=== PATIENT | female | born 1960 | race Caucasian/White ===

== ENCOUNTER 2019-05-11 06:40 | Day surgery (SDC) | payer OTHER ==
[2019-05-11] MEDS ORDERED: Propofol 200 MG/20 ML SDV IV ONE (06:41)
[2019-05-11] MEDS ORDERED: fentaNYL 100 MCG/2 ML SDV IV ONE (06:41)
[2019-05-11] MEDS ORDERED: Ondansetron 4 MG/2 ML SDV IVPUSH ONE (06:41)
[2019-05-11] MEDS ORDERED: Lidocaine 2% 5 ML SDV INJECT ONE (06:41)
[2019-05-11] MEDS ORDERED: Dexamethasone 4 MG/ML 5 ML MDV IVPUSH ONE (06:41)
[2019-05-11] MEDS ORDERED: Ketorolac 30 MG/ML SDV IVPUSH ONE (06:41)
[2019-05-11] MEDS ORDERED: Ropivacaine 0.5% 5 MG/ML 20 ML SDV INJECT ONE (06:41)
[2019-05-11] MEDS ORDERED: Midazolam 1 MG/ML 2 ML SDV IV ONE (06:41)
[2019-05-11] MEDS ORDERED: Lactated Ringers 1,000 ML IV ONE (06:41)
[2019-05-11] MEDS ORDERED: Scopolamine 1.5 MG Transdermal Patch TRDERM ONE (07:00)
[2019-05-11] MEDS ORDERED: Acetaminophen 500 MG Tab PO ONE (07:00)
[2019-05-11] MEDS ORDERED: Clindamycin in 0.9 % Sod Chlor 900 MG/50 ML BAG IV ONE (07:30)
[2019-05-11] MEDS: Lactated Ringers 1,000 ML IV SCH ×2 (07:40→10:28)
[2019-05-11] MEDS ORDERED: Tranexamic Acid 3,000 MG, Sodium Chloride 0.9% 100 ML IRR ONE ×2 (09:00)
[2019-05-11] MEDS ORDERED: Ropivacaine 49.25 ML, Ketorolac 30 MG, EPINEPHrine 0.5 MG, cloNIDine 80 MCG, Sodium Chl... INJECT ONE ×5 (09:00)
--- NOTE | 2019-05-11 09:28 | PCM.OPNOTE ---
- General Post-Op/Procedure Note Date of Surgery/Procedure: 05/11/19 Operative Procedure(s): left medial pka Pre Op Diagnosis: left knee primary oa Post-Op Diagnosis: Same Anesthesia Technique: Combo Spinal/Epidural, MAC Primary Surgeon: Adiel Montejo Anesthesia Provider: Fernando Tracey Cash Register Repairer: Coreen Pulido EBL in mLs: 100 Complications: None Condition: Good
[2019-05-11] MEDS ORDERED: DOXYCYCLINE 100 MG PO PRN (09:34)
[2019-05-11] MEDS ORDERED: ALPRAZolam 0.5 MG Tab PO PRN (09:34)
[2019-05-11] MEDS ORDERED: Morphine 2 MG/ML Syringe IVPUSH PRN (09:36)
[2019-05-11] MEDS ORDERED: Magnesium Hydroxide 400 MG/5 ML Susp 30 ML Cup PO PRN (09:36)
[2019-05-11] MEDS ORDERED: Docusate Sodium 100 MG Cap PO PRN (09:36)
[2019-05-11] MEDS ORDERED: diphenhydrAMINE 50 MG/ML SDV IVPUSH PRN (09:36)
[2019-05-11] MEDS ORDERED: Sennosides 8.6 MG Tab PO PRN (09:36)
[2019-05-11] MEDS ORDERED: Ondansetron 4 MG/2 ML SDV IVPUSH PRN (09:36)
[2019-05-11] MEDS ORDERED: Zolpidem 5 MG Tab PO PRN (09:36)
[2019-05-11] MEDS ORDERED: Bisacodyl 5 MG Tab PO PRN (09:36)
[2019-05-11] MEDS ORDERED: Naloxone 0.4 MG/ML SDV IVPUSH PRN (09:36)
[2019-05-11] MEDS: traMADol 50 MG Tab PO SCH ×3 (12:35→23:41)
--- NOTE | 2019-05-11 13:35 | US ---
INDICATION: Left femoral nerve ablation. ULTRASOUND, RFA GUIDANCE: Multiple ultrasonic images were utilized, along with real time imaging, for guidance for left femoral nerve blocking. MTDD
--- NOTE | 2019-05-11 13:36 | CR ---
INDICATION: Postop. LEFT KNEE: Frontal and lateral views of the left knee were obtained portable, post medial hemiarthroplasty of the left knee, 05/11/19 - no comparisons. The patient is post total knee arthroplasty with air in the joint and metallic skin sutures noted in place. Good position and alignment of the medial hemiarthroplasty is seen with no evidence of a complicating process. IMPRESSION: Satisfactory appearance postop left medial hemiarthroplasty. BHARGAVI
[2019-05-11] MEDS: Acetaminophen/oxyCODONE 325-5 MG Tab PO PRN (14:11)
--- NOTE | 2019-05-11 15:21 | OR ---
DATE OF OPERATION: 05/11/2019 SURGEON: Adiel Montejo DO PREOPERATIVE DIAGNOSIS: Left knee primary osteoarthritis. POSTOPERATIVE DIAGNOSIS: Left knee primary osteoarthritis. PROCEDURE: Left knee medial partial knee arthroplasty. CAREER LAW CLERK: Coreen Pulido NP. Nurse practitioner, Coreen Pulido NP, played an essential role in assisting in this case, helping to position the patient, retract structures as needed, as well as suturing and cutting sutures as indicated. Her presence improved patient's safety and decreased operative time. ANESTHESIA: Spinal plus conscious sedation, Fernando Tracey CRNA. FLUID: Lactated Ringer solution. ESTIMATED BLOOD LOSS: 100 mL. COMPLICATIONS: None. SPECIMEN: None. DISCHARGE DISPOSITION: Stable to PACU. INSTRUMENTATION: DePuy Sigma size 2 femur, size 2 tibia, and size two 8 mm polyethylene tibial insert. HISTORY AND INDICATION FOR PROCEDURE: The patient is well known to me. She had been seen at [facility]. She had failed nonoperative treatment. Preoperative imaging including plain films and MRI confirmed the above-mentioned diagnosis. Risks and benefits of the procedure explained to the patient. Informed consent was obtained. DETAILS OF PROCEDURE: The patient was seen preoperatively by myself and Anesthesia staff in the preoperative holding area where the operative site was marked. She was brought to the operative suite by Anesthesia staff where spinal was performed plus conscious sedation. A well-padded tourniquet was placed on the left thigh. A Yu catheter was placed. The right lower extremity was placed into a stirrup. The left lower extremity was placed into a hip encinas with a gel pad. The left lower extremity was then prepped and draped in a sterile manner. Time-out was called identifying the correct patient, correct procedure, correct site, and that antibiotics were begun within appropriate period of time. The left lower extremity was exsanguinated. Tourniquet was raised to 250 mmHg for 35 minutes and taken down during cementing. An incision was made from the tibial tubercle along the medial side of the patella to the superior pole. Bleeding was controlled with Bovie electrocautery. Gelpi's were used for retraction. A medial parapatellar arthrotomy was then made. The medial proximal tibia was visualized using Bovie electrocautery. The anterior portion of the medial meniscus was removed. The infrapatellar fat pad was removed. The lateral joint space was inspected and found to be good. No cyst was visualized on the ACL as was on the MRI. The tibial guide was then placed in line with the patella and the second metatarsal. A guide was used to remove the proximal 3 mm of the tibia. This was pinned in place. I made my vertical line just lateral to the lateral tibial spine in line with the anterior superior iliac spine and then my horizontal cut was made. I then removed my guide and then removed the proximal tibial portion which measured between a size 2 and a size 3. We settled on a size 2. We then brought the knee into extension and placed the distal femoral cutting guide, pinned it in place, and then used the saw to make our distal femoral cut. We then removed the guide. I then marked the midportion of the condyle anteriorly and posteriorly with Bovie electrocautery using the size 2 joystick. I then applied my femoral guide, pinned this in place, and made my chamfer cuts as well as drilled my lugs. I then removed extra pieces of bone and then applied my femur which fit very well and easily measured and was able to slide a 7 into it anticipating the size 8 tibia polyethylene insert. I then removed all of that component, and then I was able to remove the posterior portion of the medial meniscus. I then inserted my tibial baseplate keel cutter. I used a lamina marketing associate to hold this in place and then cut my keel using the gouge and then drilled the lug through the tibial baseplate guide. I then removed all my components, applied TXA and let it set in the wound. We then mixed our cement. We then cemented our components in place leaving a size two [address] in approximately 20 degrees of flexion and let the cement set up. We took the tourniquet down at 35 minutes. I was able to Bovie a couple bleeders. After drying, I took a great deal of time to make sure that all of our cement was out and cleaned our baseplate and femur from any extra dried cement. I then trialed with a size 8 mm and then inserted an 8 mm polyethylene insert. I then copiously irrigated with saline and then irrigated with Betadine infused irrigation. We ranged the knee when it was stable throughout range of motion. We then closed the parapatellar arthrotomy with 2 [id number] #5 Ethibond sutures at the superior and inferior pole of patella, followed by #1 Stratafix in a watertight manner through the arthrotomy and then closed subcutaneously with #1 Stratafix followed by skin heather followed by Betadine-soaked Adaptic, sponges, ABD, and Medipore tape. The patient was allowed to awaken from general anesthesia and taken to the PACU in stable condition. /[id number] BS/MODL
[2019-05-11] MEDS: Clindamycin in 0.9 % Sod Chlor 600 MG/50 ML BAG IV SCH ×2 (16:00→23:44)
[2019-05-11] MEDS: Ketorolac 30 MG/ML SDV IVPUSH SCH (17:25)
[2019-05-11] MEDS: Sodium Chloride 0.9% 10 ML Syringe FLUSH PRN (17:30)
[2019-05-12] MEDS: Ketorolac 30 MG/ML SDV IVPUSH SCH (00:33)
[2019-05-12] MEDS: Sodium Chloride 0.9% 10 ML Syringe FLUSH PRN (00:34)
[2019-05-12] MEDS: Levothyroxine 100 MCG Tab *PTOM PO SCH ×2 (05:55→06:30)
[2019-05-12] MEDS: Acetaminophen/oxyCODONE 325-5 MG Tab PO PRN ×2 (06:06→13:15)
[2019-05-12] MEDS: traMADol 50 MG Tab PO SCH ×2 (07:01→12:10)
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
--- NOTE | 2019-05-12 08:43 | ANES ---
DATE OF PROCEDURE: 05/11/2019 SURGEON: Dr. Adiel Montejo. PROCEDURE DONE: Left adductor canal nerve block with ultrasound guidance in the PACU. TIME OF PROCEDURE: 1006 hours, ending at 1017 hours. PREOPERATIVE DIAGNOSIS: She had a left partial knee replacement today, and Dr. Montejo and patient were requesting a postoperative peripheral nerve block for pain control. The risks and benefits were discussed with the patient, and she wishes to proceed. A consent was obtained. Time-out was done prior to the procedure. MONITORS: Blood pressure, heart rate, SaO2. No sedation required. The patient had a spinal from her knee replacement that was still working. DESCRIPTION OF PROCEDURE: She is in a supine position with the left leg in a frog-leg position. A preprocedure scan was done with the left femoral artery and her sartorius muscle being identified under ultrasound visualization. A needle insertion area was prepped with ChloraPrep swab and allowed to dry. Using aseptic technique, a 20-gauge 4-inch Stimuplex Ultra 360 echogenic needle was inserted to a good position under the sartorius muscle and next to the femoral artery. The needle was redirected x1 during the procedure. Under direct ultrasound visualization, a total of 30 mL of 0.5 Naropin in divided dosages with multiple negative aspirations for blood, was given without any patient complaints or complications. The patient tolerated the procedure well, and we did get a image for the PAC system. /[id number] HG/MODL HILDAD
[2019-05-12] MEDS ORDERED: Aspirin 325 MG Tab.EC PO SCH (09:00)
[2019-05-12] MEDS ORDERED: Pantoprazole 40 MG Tab.CR PO SCH (09:00)
[2019-05-12] MEDS ORDERED: METHYLPHENIDATE HCL 30 MG PO SCH (09:00)
[2019-05-12] MEDS ORDERED: Metoprolol Succinate 25 MG Tab.ER PO SCH (09:00)
--- NOTE | 2019-05-12 10:45 | PCM.DCSUM1 ---
Discharge Summary - Hospital Course HPI Initial Comments: 58 yo female left knee primary oa Diagnosis: Stroke: No - Discharge Data Discharge Date: 05/12/19 Discharge Disposition: Home, Self-Care 01 Condition: Good - Referral to Home Health Primary Care Physician: Kalina Hastings NP - Discharge Diagnosis/Problem(s) (1) Arthritis of knee, left SNOMED Code(s): 350543433 ICD Code: M17.12 - UNILATERAL PRIMARY OSTEOARTHRITIS, LEFT KNEE Status: Acute Current Visit: Yes - Patient Summary/Data Operative Procedure(s) Performed: left medial pka Complications: none Consults: Consultations 05/11/19 09:36 Consult to Physician [CONS] Routine Consulting Provider: Landen Irizarry Call Completed to Consulting Physician: Yes Reason for Consult: hypertension management Person Notified: via test Date Notified: 05/11/19 Respiratory Care Assess and Treatment [CONS] Routine Comment: Physician Instructions: Post-op Pneumonia Prevention 05/11/19 15:00 OT Evaluation and Treatment [CONS] Routine Please Evaluate and Treat. OT Reason for Consult: Strengthening This query below is only for informational purposes and is not editable. Admission Diagnosis/Problem: Knee pain PT Evaluation and Treatment [CONS] Routine Please Evaluate and Treat. PT Reason for Consult: Strengthening This query below is only for informational purposes and is not editable. Admission Diagnosis/Problem: Knee pain - Patient Instructions Diet: Usual Diet as Tolerated Activity: Apply Ice, As Tolerated, Bedrest, May Use Bathroom, No Strenuous Activities Driving: Do Not Drive Showering/Bathing: May Shower Wound/Incision Care: Keep Operative Site/Wound Site Clean and Dry Wound/Incision, Other: change dressing saturday then daily with clean dressing Notify Provider of: Fever, Increased Pain, Swelling and Redness, Drainage, Nausea and/or Vomiting - Discharge Plan *PRESCRIPTION DRUG MONITORING PROGRAM REVIEWED*: Yes *COPY OF PRESCRIPTION DRUG MONITORING REPORT IN PATIENT TRISH: No Prescriptions/Med Rec: Acetaminophen/oxyCODONE [Percocet 325-5 MG] 1 tab PO Q6HR PRN #28 tablet PRN Reason: Pain (Moderate 4-6) Aspirin [Ecotrin EC] 325 mg PO DAILY #21 tab.ec Home Medications: Home Meds ALPRAZolam [Xanax] 0.5 mg PO Q6H PRN 05/07/19 [History] Acetaminophen 500 mg PO Q6H PRN 05/07/19 [History] B1/B2/Niacin/B12/Protease [B-Complex with B-12 Tablet] 1 each PO DAILY 05/07/19 [History] Calcium Carbonate/Vitamin D3 [Calcium 600 + Vit D 200] 1 each PO BID 05/07/19 [ History] Cholecalciferol (Vitamin D3) [Vitamin D3] 5,000 unit PO DAILY 05/07/19 [History] Cyclobenzaprine [Flexeril] 10 mg PO DAILY PRN 05/07/19 [History] DULoxetine [Cymbalta] 60 mg PO DAILY 05/07/19 [History] Doxycycline [Vibramycin] 100 mg PO DAILY PRN 05/07/19 [History] Ibuprofen [Advil] 200 mg PO Q6H PRN 05/07/19 [History] Levothyroxine [Synthroid] 100 mcg PO ACBREAKFAST 05/07/19 [History] Methylphenidate HCl [Methylphenidate ER] 30 mg PO DAILY 05/07/19 [History] Metoprolol Succinate [Toprol XL] 25 mg PO DAILY 05/07/19 [History] Multivitamin W/Iron, Minerals [Complete Senior] 1 each PO DAILY 05/07/19 [ History] Rizatriptan [Maxalt ACCESS SPEC] 10 mg PO ASDIRECTED PRN 05/07/19 [History] Zolpidem Tartrate [Ambien] 10 mg PO BEDTIME PRN 05/07/19 [History] buPROPion HCl [Wellbutrin Xl] 150 mg PO DAILY@1400 05/07/19 [History] traMADol HCl [Tramadol HCl ER] 200 mg PO BEDTIME 05/07/19 [History] traMADol HCl [Tramadol HCl] 100 mg PO BID@08,14 05/07/19 [History] Docusate Sodium 100 mg PO BID PRN 05/11/19 [History] Acetaminophen/oxyCODONE [Percocet 325-5 MG] 1 tab PO Q6HR PRN #28 tablet [Rx] Aspirin [Ecotrin EC] 325 mg PO DAILY #21 tab.ec 05/12/19 [Rx] Patient Handouts: Total Knee Replacement Referrals: Adiel Montejo DO [Physician] - - Discharge Summary/Plan Comment DC Time >30 min.: No - General Info Date of Service: 05/12/19 Admission Dx/Problem (Free Text: left knee primary oa Functional Status: Reports: Pain Controlled, Tolerating Diet, Ambulating, Urinating - Review of Systems General: Reports: No Symptoms HEENT: Reports: No Symptoms Pulmonary: Reports: No Symptoms Cardiovascular: Reports: No Symptoms Gastrointestinal: Reports: No Symptoms Genitourinary: Reports: No Symptoms Musculoskeletal: Reports: Leg Pain, Joint Pain, Joint Swelling Skin: Reports: No Symptoms Neurological: Reports: No Symptoms Psychiatric: Reports: No Symptoms - Patient Data Vitals - Most Recent: Last Vital Signs Temp 97.4 F 05/12/19 03:47 Pulse 71 05/12/19 09:02 Resp 16 05/12/19 03:47 BP 123/60 05/12/19 09:02 Pulse Ox 97 05/12/19 03:47 Weight - Most Recent: 198 lb I&O - Last 24 hours: Intake & Output 05/11/19 05/12/19 05/12/19 22:59 06:59 14:59 Intake Total 50 400 Output Total 250 Balance -200 400 Lab Results - Last 24 hrs: Laboratory Results - last 24 hr 05/12/19 Range/Units 06:20 WBC 8.8 (4.5-12.0) X10-3/uL RBC 3.66 (3.23-5.20) x10(6)uL Hgb 11.7 (11.5-15.5) g/dL Hct 33.2 (30.0-51.3) % MCV 90.6 (80-96) fL MCH 32.0 (27.7-33.6) pg MCHC 35.3 (32.2-35.4) g/dL RDW 12.3 (11.5-15.5) % Plt Count 188 (125-369) X10(3)uL MPV 8.6 (7.4-10.4) fL Neut % (Auto) 79.5 (46-82) % Lymph % (Auto) 14.1 (13-37) % Gilmer % (Auto) 5.9 (4-12) % Eos % (Auto) 0 L (1.0-5.0) % Baso % (Auto) 0 (0-2) % Neut # (Auto) 7.1 (1.6-8.3) # Lymph # (Auto) 1.2 (0.6-5.0) # Gilmer # (Auto) 0.5 (0.0-1.3) # Eos # (Auto) 0.0 (0.0-0.8) # Baso # (Auto) 0.0 (0.0-0.2) # Med Orders - Current: Current Medications Alprazolam (Xanax) 0.5 mg PO Q6H PRN PRN Reason: Anxiety Aspirin (Ecotrin) 325 mg PO DAILY [facility] Last Admin: 05/12/19 09:01 Dose: 325 mg Bisacodyl (Dulcolax) 10 mg PO DAILY PRN PRN Reason: Constipation Diphenhydramine HCl (Benadryl) 25 mg IVPUSH Q4H PRN PRN Reason: Itching Docusate Sodium (Colace) 100 mg PO BID PRN PRN Reason: Constipation Last Admin: 05/12/19 06:07 Dose: 100 mg Duloxetine HCl (Cymbalta) 60 mg PO DAILY@1400 [facility] Levothyroxine Sodium (Synthroid) 100 mcg PO ACBREAKFAST [facility] Last Admin: 05/12/19 06:30 Dose: Not Given Magnesium Hydroxide (Milk Of Magnesia) 30 ml PO BID PRN PRN Reason: Constipation Metoprolol Succinate (Toprol Xl) 25 mg PO DAILY [facility] Last Admin: 05/12/19 09:02 Dose: 25 mg Morphine Sulfate (Morphine) 2 mg IVPUSH Q2H PRN PRN Reason: Breakthrough Pain Naloxone HCl (Narcan) 0.1 mg IVPUSH ONETIME PRN PRN Reason: Oversedation (Rizatriptan [Maxalt (Executive Account Manager] 10 Mg) *Ptom) 10 mg PO ASDIRECTED PRN PRN Reason: Pain Ondansetron HCl (Zofran) 4 mg IVPUSH Q4H PRN PRN Reason: Nausea/Vomiting Oxycodone/Acetaminophen (Percocet 325-5 Mg) 2 tab PO Q4H PRN PRN Reason: Pain (moderate 4-6) Last Admin: 05/12/19 06:06 Dose: 2 tab Pantoprazole Sodium (Protonix) 40 mg PO DAILY [facility] Last Admin: 05/12/19 09:01 Dose: 40 mg Senna (Senna) 8.6 mg PO BID PRN PRN Reason: Constipation Last Admin: 05/11/19 23:58 Dose: 8.6 mg Sodium Chloride (Saline Flush) 10 ml FLUSH ASDIRECTED PRN PRN Reason: Keep Vein Open Last Admin: 05/12/19 00:34 Dose: 10 ml Tramadol HCl (Ultram) 100 mg PO Q6H [facility] Last Admin: 05/12/19 07:01 Dose: Not Given Zolpidem Tartrate (Ambien) 5 mg PO BEDTIME PRN PRN Reason: Sleep Last Admin: 05/11/19 21:49 Dose: 5 mg Discontinued Medications Acetaminophen (Tylenol Extra Strength) 1,000 mg PO ONETIME ONE Stop: 05/11/19 07:01 Last Admin: 05/11/19 07:41 Dose: 1,000 mg Ropivacaine 49.25 ml/Ketorolac Tromethamine 30 mg/Epinephrine HCl 0.5 mg/ Clonidine HCl 80 mcg/ Sodium Chloride 48.45 ml 0 ml INJECT ONETIME ONE Stop: 05/11/19 09:01 Last Admin: 05/11/19 08:37 Dose: 100 syringe Tranexamic Acid 3,000 mg/ (Sodium Chloride 100 ml) 0 mg IRR ONETIME ONE Stop: 05/11/19 09:01 Last Admin: 05/11/19 09:05 Dose: 100 irr Lactated Ringer's (Ringers, Lactated) 1,000 mls @ 125 mls/hr IV ASDIRECTED [facility] Last Admin: 05/11/19 10:28 Dose: 125 mls/hr Clindamycin/Sodium Chloride (Cleocin In Ns) 900 mg in 50 mls @ 100 mls/hr IV ONETIME ONE Stop: 05/11/19 07:59 Last Admin: 05/11/19 07:43 Dose: 100 mls/hr Clindamycin/Sodium Chloride (Cleocin In Ns) 600 mg in 50 mls @ 100 mls/hr IV Q8H [facility] Stop: 05/12/19 00:59 Last Admin: 05/11/19 23:44 Dose: 100 mls/hr Ketorolac Tromethamine (Toradol) 30 mg IVPUSH Q8H [facility] Stop: 05/12/19 01:31 Last Admin: 05/12/19 00:33 Dose: 30 mg Non-Formulary Medication (Doxycycline [Vibramycin]) 100 mg PO DAILY PRN PRN Reason: ACNE Non-Formulary Medication (Methylphenidate Hcl [Methylphenidate Er]) 30 mg PO DAILY [facility] Scopolamine (Transderm-Scop) 1.5 mg TRDERM Q72H ONE Stop: 05/11/19 07:01 Last Admin: 05/11/19 07:41 Dose: 1.5 mg - Exam Quality Assessment: Reports: DVT Prophylaxis General: Reports: Alert, Oriented, Cooperative, No Acute Distress HEENT: Reports: Pupils Equal, Pupils Reactive, EOMI, Mucous Membr. Moist/[place] Neck: Reports: Supple, Trachea Midline Lungs: Reports: Normal Respiratory Effort GI/Abdominal Exam: No Distention Skin: Reports: Warm, Dry, Intact Wound/Incisions: Reports: Dressing Dry and Intact, No Drainage Neurological: Reports: No New Focal Deficit Psy/Mental Status: Reports: Alert, Normal Affect, Normal Mood Discharge Operative/Procedures - Procedures Performed Operations: left medial pka
--- NOTE | 2019-05-12 13:26 | PN ---
DATE SEEN: 05/12/2019 HISTORY: Fabiola is a 58-year-old who underwent a left partial knee arthroplasty yesterday by Dr. Montejo without complications. The patient is examined in her bed this morning. She states she slept fairly well. Woke up once during the night with pain, after her medications had worn off, but is comfortable while she is lying still. PHYSICAL EXAMINATION: VITAL SIGNS: Blood pressure 110/64, pulse 66 and regular. She is afebrile. O2 saturation 97% on room air. SKIN: Showed no rash. She had a left knee dressing in place that was not unwrapped but was dry. NEUROLOGIC: She was awake, alert. Respirations were easy. Motor exam was symmetric with the exception of some stiffness to flexion at the left knee. EXTREMITIES: Pulses in the feet were excellent. Skin color normal. Sensation normal to the lower extremities and motor exam is good with diminished movement at the knee as expected. ASSESSMENT: 1. Postop day 1, left partial knee arthroplasty, stable. 2. Hypertension, controlled. 3. Hypothyroidism. PLAN: She is stable from a medical standpoint, may be discharged whenever cleared by Dr. Montejo in Orthopedics. Followup as an outpatient as directed. /[id number] ERICH/ULI
[2019-05-12] MEDS ORDERED: DULoxetine 60 MG Cap PO SCH (14:00)
== END 2019-05-12 12:50 | disposition home or self-care (01) ==
LOC: FB.SDS 06:40 → FB.MS 11:16 → FB.SDS 05-12 12:50
PROVIDERS: ATTEND Orthopaedic Surgery
DX: M17.0 Bilateral primary osteoarthritis of knee (principal); E03.9 Hypothyroidism, unspecified; I10 Essential (primary) hypertension; M79.7 Fibromyalgia; M47.819 Spondylosis without myelopathy or radiculopathy, site unspecified; Z79.899 Other long term (current) drug therapy; Z88.1 Allergy status to other antibiotic agents; Z88.8 Allergy status to other drugs, medicaments and biological substances
CPT/HCPCS: 36415; 73560-LT; 85025; 86850; 86900; 86901; 94150; 97110-GP; 97116-GP; 97161-GP; A9270-GY; J0171; J0735; J1100; J1885; J2001; J2250; J2405; J2704; J2795; J3010; J3490; J7030; J7050; J7120